=== PATIENT | male | born 1955 | race Asian ===

== ENCOUNTER 2021-05-07 08:07 | Day surgery (SDC) | payer MEDICAID, SELFPAY ==
[~2021-05-07] VITALS: Ht 165.1 cm; Wt 68.0 kg
[2021-05-07] MEDS ORDERED: MIDAZOLAM HCL 5 MG/5 ML VIAL ONE (08:46)
[2021-05-07] MEDS ORDERED: fentaNYL CITRATE/PF 100 MCG/2 ML AMP ONE (09:28)
[2021-05-07 15:45] VITALS: BP_SYST 122
== END 2021-05-07 10:45 | disposition home or self-care (01) ==
LOC: SDS 08:07 → SMU 08:08 → SDS 10:45
PROVIDERS: ATTEND Internal Medicine Gastroenterology
DX: Z12.11 Encounter for screening for malignant neoplasm of colon (principal); D12.0 Benign neoplasm of cecum; I10 Essential (primary) hypertension; E11.9 Type 2 diabetes mellitus without complications; E78.00 Pure hypercholesterolemia, unspecified; Z86.010 Personal history of colon polyps; Z20.822 Contact with and (suspected) exposure to COVID-19; Z79.899 Other long term (current) drug therapy
CPT/HCPCS: 36415; 45385; 82962; 87426; 88305; 99152; G0378; J2250; J3010; U0003